=== PATIENT | female | born 1990 | race Two or more races ===

== ENCOUNTER → 2017-01-16 | Outpatient (CLI) | payer OTHER ==
[~2017-01-16] MED LIST: GADOBUTROL 10 MMOL/10 ML VIAL ONE
== END | disposition home or self-care (01) ==
LOC: CFH 10:03
PROVIDERS: ATTEND Neurological Surgery
DX: D35.2 Benign neoplasm of pituitary gland (principal)
CPT/HCPCS: 70553; A9585

== ENCOUNTER 2020-06-07 08:44 | Day surgery (SDC) | payer OTHER ==
[~2020-06-07] VITALS: Ht 157.5 cm; Wt 77.3 kg
[2020-06-07] MEDS ORDERED: ONDANSETRON 2MG/ML, 2ML ONE ×2 (09:20→13:54)
[2020-06-07] MEDS ORDERED: HYDROmorphone 1 MG/ML, 1ML INJ ONE (09:20)
[2020-06-07] MEDS ORDERED: ONDANSETRON 2MG/ML, 2ML IVPush ONE (09:30)
[2020-06-07] MEDS ORDERED: HYDROmorphone 1 MG/ML, 1ML INJ IV ONE (09:30)
[2020-06-07] MEDS ORDERED: SODIUM CHLORIDE 0.9% 1,000ML IVBOLUS ONE (09:30)
[2020-06-07 09:33] LABS: BASOPHILS % (AUTO) 0 % (0-1); EOSINOPHILS % (AUTO) 1 % (1-7); LYMPHOCYTES % (AUTO) 4 % (22-44); MEAN CORPUSCULAR HEMOGLOBIN 30.7 pg (27.0-34.8); MEAN CORPUSCULAR HGB CONC 34.2 g/dL (32.4-35.8); MONOCYTES % (AUTO) 8 % (2-9); NEUTROPHILS % (AUTO) 87 % (42-75); PLATELET COUNT 393 x10^3/uL (130-400); RED BLOOD COUNT 4.61 x10^6/uL (3.82-5.3)
[2020-06-07] MEDS ORDERED: MAALOX/HYOSCYAMINE/LIDOCAINE 45 ML BTL ONE (09:37)
[2020-06-07 09:39] LABS: MICROSCOPIC INDICATED
--- NOTE | 2020-06-07 09:41 | NUR ---
THIS RN WAS CALLED TO THE PATIENT'S ROOM BY THE PASSENGER LOCOMOTIVE ENGINEER. PT IS IN SEVERE PAIN IN THE EPIGASTRIC REGION. DR. SINGLETON NOTIFIED. GI COCKTAIL ORDERED AND GIVEN. WILL CONTINUE TO MONITOR. ULTRASOUND IN PROGRESS.
[2020-06-07 09:50] LABS: MD SCAN
[2020-06-07 10:00] LABS: ALBUMIN 3.5 g/dL (3.4-5.0); ANION GAP 8 mmol/L (5-15); CHLORIDE 109 mmol/L (98-107); CREATININE 1.02 mg/dL (0.55-1.02)
[2020-06-07] MEDS ORDERED: SODIUM CHLORIDE FLUSH 10ML SYR IVF ONE (10:00)
[2020-06-07] MEDS ORDERED: MAALOX/HYOSCYAMINE/LIDOCAINE 45 ML BTL PO ONE (10:00)
[2020-06-07 10:05] LABS: ALANINE AMINOTRANSFERASE 21 U/L (12-78); ALKALINE PHOSPHATASE 100 U/L (45-117); BILIRUBIN,TOTAL 0.9 mg/dL (0.2-1.0); TOTAL PROTEIN 7.3 g/dL (6.4-8.2)
--- NOTE | 2020-06-07 10:07 | NUR ---
Brief report for break received and care assumed for breakfast break.
--- NOTE | 2020-06-07 10:26 | NUR ---
Labs and US results reviewed and chart marked for recheck by MD. Noted elevated WBC's with US showing + Copeland's sign with gallstones.
--- NOTE | 2020-06-07 10:28 | NUR ---
Report given to Joe RN's and care transferred back to them. Notified of SIRS criteria being met and need for MD notification.
[2020-06-07] MEDS ORDERED: ALBU18HF IH (10:51)
[2020-06-07] MEDS ORDERED: MONT10TA17 PO (10:51)
[2020-06-07] MEDS ORDERED: CETI10TA76 PO (10:52)
[2020-06-07] MEDS ORDERED: FLUT9.9S NS (10:53)
[2020-06-07] MEDS ORDERED: LEVO50TA5 PO (10:59)
[2020-06-07] MEDS ORDERED: ONDANSETRON 2MG/ML, 2ML IVPush PRN ×2 (11:00→14:00)
[2020-06-07] MEDS ORDERED: CEFOTETAN PMX 1GM/50ML 50 ML IVPB ONE (11:00)
[2020-06-07] MEDS ORDERED: NORE-211 PO (11:01)
--- NOTE | 2020-06-07 11:29 | NUR ---
[facility] TELEPHONE HAND-OFF REPORT GIVEN TO CHRIS STAHL. PT READY TO GO TO HOSPITAL ROOM.
[2020-06-07] MEDS ORDERED: SODIUM CHLORIDE 0.9% 1,000 ML IV ONE (11:30)
[2020-06-07] MEDS ORDERED: HYDROmorphone 1 MG/ML, 1ML INJ IVPush PRN ×2 (11:30→14:00)
--- NOTE | 2020-06-07 11:35 | NUR ---
[facility] HAND-OFF REPORT GIVEN TO RN TRACE IN PRE-OP.
[2020-06-07] MEDS ORDERED: SODIUM CHLORIDE FLUSH 10ML SYR IVF PRN (12:00)
[2020-06-07 12:05] VITALS: BP 115/76
[2020-06-07] MEDS ORDERED: BUPIVACAINE/PF 0.5% ONE (12:50)
[2020-06-07] MEDS ORDERED: EPINEPHRINE 1 MG/ML, 1ML ONE (12:50)
[2020-06-07] MEDS ORDERED: CHLORHEXIDINE 15 ML UDC ONE (12:58)
[2020-06-07] MEDS ORDERED: INDOCYANINE GREEN 25 MG VIAL ONE (13:03)
[2020-06-07] MEDS ORDERED: INDOCYANINE GREEN 25 MG VIAL IVPush STA (13:09)
[2020-06-07] MEDS ORDERED: FENTANYL PF 250 MCG/5ML ONE (13:13)
[2020-06-07] MEDS ORDERED: MIDAZOLAM 1 MG/ML, 2ML ONE (13:13)
[2020-06-07] MEDS ORDERED: SUGAMMADEX 200 MG/2 ML IVPush ONE (13:15)
[2020-06-07] MEDS ORDERED: KETOROLAC 30 MG/1 ML ONE (13:15)
[2020-06-07] MEDS ORDERED: PROPOFOL 50 ML ONE (13:25)
[2020-06-07] MEDS ORDERED: DEXAMETHASONE 4 MG/ML, 5ML ONE (13:28)
[2020-06-07] MEDS ORDERED: PROPOFOL 10 MG/ML, 20ML ONE (13:54)
[2020-06-07] MEDS ORDERED: ROCURONIUM 10MG/ML,5ML ONE (13:54)
[2020-06-07] MEDS ORDERED: ALBUTEROL SULFATE 2.5 MG/3 ML NPPB PRN (14:00)
[2020-06-07] MEDS ORDERED: FENTANYL PF 100 MCG/2ML IV PRN (14:00)
[2020-06-07] MEDS ORDERED: METOCLOPRAMIDE 5 MG/ML, 2ML IVPush PRN (14:00)
[2020-06-07] MEDS ORDERED: ACETAMINOPHEN 325 MG TABLET PO PRN (14:00)
[2020-06-07] MEDS ORDERED: KETOROLAC 30 MG/1 ML IVPush PRN (14:00)
[2020-06-07] MEDS ORDERED: morphine SULFATE 10 MG/ML, 1ML IVPush PRN (14:00)
[2020-06-07] MEDS ORDERED: METHOCARBAMOL 1,000 MG in DEXTROSE 5% 100 ML IV PRN (14:00)
[2020-06-07] MEDS ORDERED: LORazepam 2 MG/ML, 1ML IVPush PRN (14:00)
[2020-06-07] MEDS ORDERED: OXYcodone 5 MG/5 ML ORAL.SOL UDC PO PRN (14:00)
[2020-06-07] MEDS ORDERED: HYDROcodone/APAP 5/325 TABLET PO PRN (14:00)
[2020-06-07] MEDS ORDERED: PROMETHAZINE 25 MG/ML, 1ML IVPush PRN (14:00)
[2020-06-07] MEDS ORDERED: LABETALOL 5MG/ML, 20ML IV PRN (14:00)
[2020-06-07] MEDS ORDERED: MEPERIDINE/PF 25MG/0.5ML IVPush PRN (14:00)
[2020-06-07] MEDS ORDERED: hydrALAzine 20 MG/ML, 1ML IV PRN (14:00)
[2020-06-07] MEDS ORDERED: ONDA4TAB7 PO (14:02)
[2020-06-07] MEDS ORDERED: HYDR-1067 PO (14:02)
[2020-06-07] MEDS ORDERED: FENTANYL PF 100 MCG/2ML ONE (14:20)
[2020-06-07] MEDS ORDERED: MEPERIDINE/PF 25MG/ML,1ML ONE (14:25)
[2020-06-07] MEDS ORDERED: ENOXAPARIN 40 MG/0.4 ML SQ SCH (14:30)
[2020-06-07] MEDS ORDERED: OXYcodone 5 MG/5 ML ORAL.SOL UDC ONE (14:50)
[2020-06-07 19:20] VITALS: BP 122/75
[2020-06-08] MEDS ORDERED: ENOXAPARIN 40 MG/0.4 ML SQ SCH (06:00)
== END 2020-06-07 20:24 | disposition home or self-care (01) ==
LOC: ED 10:35 → EDIP 10:49 → UNDOADMIN 10:49 → 4NE 12:00 → EDIP 12:00 → OUT 13:56 → EDSTATUS 15:39 → UNDODISIN 20:24 → OUT 20:24
PROVIDERS: ATTEND Emergency Medicine
DX: K80.12 Calculus of gallbladder with acute and chronic cholecystitis without obstruction (principal); K82.8 Other specified diseases of gallbladder; J45.909 Unspecified asthma, uncomplicated; E78.5 Hyperlipidemia, unspecified; E66.9 Obesity, unspecified; Z20.822 Contact with and (suspected) exposure to COVID-19; Z79.890 Hormone replacement therapy; Z79.899 Other long term (current) drug therapy; Z83.79 Family history of other diseases of the digestive system; Z83.3 Family history of diabetes mellitus; Z82.49 Family history of ischemic heart disease and other diseases of the circulatory system
CPT/HCPCS: 36415; 47563; 76700; 80053; 81001; 83690; 84703; 85025; 87086; 87635; 88304; 93005; 96361; 96374; 99285; J0171; J1100; J1170; J1885; J2175; J2250; J2405; J2704; J3010; J7030; G0378